=== PATIENT | male | born 1980 | race Caucasian/White ===

== ENCOUNTER → 2019-05-01 | Outpatient (CLI) | payer MEDICAID | END | disposition home or self-care (01) | LOC: MRI 10:28 | PROVIDERS: ATTEND Neurological Surgery | DX: M47.892 Other spondylosis, cervical region (principal); M48.02 Spinal stenosis, cervical region; M54.9 Dorsalgia, unspecified; M54.2 Cervicalgia; M51.26 Other intervertebral disc displacement, lumbar region | CPT/HCPCS: 72141; 72146; 72148 ==